=== PATIENT | female | born 1935 | race Caucasian/White ===

== ENCOUNTER 2016-08-26 10:02 | Emergency (ER) | payer MEDICARE, BC ==
--- NOTE | 2016-08-26 10:24 | Emergency Department Record ---
History of Present Illness - General Chief Complaint: Cough Stated Complaint: COUGHING Time Seen by Provider: 08/26/16 10:12 Source: Patient Mode of Arrival: Ambulatory Limitations: No limitations - History of Present Illness Initial Comments: The patient is here due to a one day hx of a dry cough. The cough now feels like it is traveling into her chest. She denies any sputum production, CP, SOB, or fevers. She states she gets bronchitis like this every year. MD Complaint: Cough Onset/Timin -: Days(s) Consistency: Intermittent - Related Data Home Medications Medication Instructions Recorded Confirmed Last Taken Dicyclomine HCl 10 mg PO DAILY PRN 12/02/13 08/26/16 08/29/15 Lidocaine Patch [Lidoderm] 1 each TOP DAILY 12/02/13 08/26/16 08/29/15 Pregabalin [Lyrica] 150 mg PO DAILY 12/02/13 08/26/16 08/29/15 Simvastatin [Simvastatin] 20 mg PO DAILY 12/02/13 08/26/16 08/29/15 Omeprazole [Prilosec] 20 mg PO DAILY 08/30/15 08/26/16 08/29/15 Trazodone HCl [Desyrel] 50 mg PO QHS 08/30/15 08/26/16 08/29/15 Previous Rx's Medication Instructions Recorded Azithromycin [Zithromax] 250 mg PO ASDIR #6 tab 08/26/16 Benzonatate [Tessalon] 1 cap PO Q8H PRN #15 cap 08/26/16 Allergies Allergy/AdvReac Type Severity Reaction Status Date / Time No Known Drug Allergies Allergy Unverified 09/26/15 10:41 Travel Screening - Travel/Exposure Within Last 30 Days Have you traveled within the last 30 days?: No Review of Systems Constitutional: Denies: Chills, Fever Eyes: Denies: Eye discharge ENT: Denies: Congestion Respiratory: Reports: Cough. Denies: Dyspnea, Hemoptysis Cardiovascular: Denies: Chest pain Past Medical History - SOCIAL HISTORY Smoking Status: Former smoker Alcohol Use: None Drug Use: None - RESPIRATORY Hx Respiratory Disorders: No - CARDIOVASCULAR Hx Cardio Disorders: No - NEURO Hx Neuro Disorders: No - GI Hx GI Disorders: Yes Hx Irritable Bowel: Yes - Hx Genitourinary Disorders: No - ENDOCRINE Hx Endocrine Disorders: No - MUSCULOSKELETAL Hx Musculoskeletal Disorders: Yes Hx Fibromyalgia: Yes - PSYCH Hx Psych Problems: No - HEMATOLOGY/ONCOLOGY Hx Hematology/Oncology Disorders: No Family Medical History Any Significant Family History?: Yes Hx Cancer: Brother/Sister Hx Diabetes: Brother/Sister Physical Exam - General General Appearance: Alert, Oriented x3, Cooperative, No acute distress - Head Head exam: Atraumatic, Normocephalic, Normal inspection - Eye Eye exam: Normal appearance, PERRL - ENT Throat exam: Normal inspection. negative: Tonsillar erythema, Tonsillar exudate - Neck Neck exam: Normal inspection, Full ROM. negative: Lymphadenopathy, Tenderness - Respiratory Respiratory exam: Normal lung sounds bilaterally. negative: Decreased breath sounds, Respiratory distress, Stridor, Wheezes - Cardiovascular Cardiovascular Exam: Regular rate, Normal rhythm, Normal heart sounds - GI/Abdominal GI/Abdominal exam: Soft, Normal bowel sounds. negative: Tenderness - Extremities Extremities exam: Normal inspection, Full ROM, Normal capillary refill. negative: Tenderness - Neurological Neurological exam: Normal gait. negative: Abnormal gait Course Vital Signs 08/26/16 10:07 Temperature 97.9 F Pulse Rate 74 Respiratory 18 Rate Blood Pressure 138/77 Pulse Ox 98 - Reevaluation(s) Reevaluation #1: The patient is doing well. I did explain to her that the xray is WNL. We will discharge her on an oral Abx and cough medicine. 08/26/16 11:03 Medical Decision Making - Data Complexity MDM Data: X-Ray Ordered and/or Reviewed - Radiology Data Radiology results: Report reviewed (CXR: Neg.) Disposition Disposition: Discharge Clinical Impression: Acute upper respiratory infection Disposition: Home, Self-Care Condition: (1) Good Instructions: Cold Symptoms (ED) Additional Instructions: Please take the Zpak and Tessalon as directed. Please see your PCP if not better by Tuesday. Return to the ER for any increased cough, fever, trouble breathing or pain. Prescriptions: Benzonatate [Tessalon] 1 cap PO Q8H PRN #15 cap PRN Reason: Cough Azithromycin [Zithromax] 250 mg PO ASDIR #6 tab Forms: Patient Portal Access Time of Disposition: 11:05
--- NOTE | 2016-08-30 17:54 | RADIOLOGY REPORT ---
DATE: 08/26/2016. EXAM: TWO VIEWS OF THE CHEST. HISTORY: The patient has a chronic cough and chest pain. TECHNIQUE: Two views of the chest were provided along with a comparison study dated 08/30/2015. FINDINGS: The cardiomediastinal silhouette is within normal limits for size and contour. Mild tortuosity of the thoracic aorta is noted. There is mild to moderate dextroconvex scoliosis of the thoracolumbar spine which appears similar to the prior examination. The tiki appear unremarkable. Mild chronic obstructive pulmonary disease changes are again identified. There is no radiographic evidence of a focal infiltrate or pleural effusion. No pneumothorax is noted. IMPRESSION: CHRONIC OBSTRUCTIVE PULMONARY DISEASE CHANGES ARE IDENTIFIED WITHOUT RADIOGRAPHIC EVIDENCE OF AN ACUTE INTRATHORACIC PROCESS. JOB NUMBER: [id number] [facility]
== END 2016-08-26 11:15 | disposition home or self-care (01) ==
LOC: ER 10:02
DX: J06.9 Acute upper respiratory infection, unspecified (principal); R05 Cough; Z87.891 Personal history of nicotine dependence
CPT/HCPCS: 71020; 99283

== ENCOUNTER 2016-08-29 11:54 | Emergency (ER) | payer MEDICARE, BC ==
--- NOTE | 2016-08-29 12:26 | Emergency Department Record ---
History of Present Illness - General Chief Complaint: Cough Stated Complaint: COUGH/CHEST CONGESTION Time Seen by Provider: 08/29/16 12:20 Source: Patient Mode of Arrival: Ambulatory Limitations: No limitations - History of Present Illness Initial Comments: 81 yo female presents to ED with a CC of continued cough and wheezing symptoms for the past 4 days. Patient was seen at that times, started on Zithromax and tessalon for her cough symptoms which have not significantly improved. Patient deniers fevers, chills, nausea, vomiting or other associated symptoms. MD Complaint: Cough Onset/Timin -: Days(s) Severity: Moderate Consistency: Constant Improves With: Nothing Worsens With: Deep breaths Associated Symptoms: Denies other symptoms Treatments Prior to Arrival: Antibiotics - Related Data Home Medications Medication Instructions Recorded Confirmed Last Taken Dicyclomine HCl 10 mg PO DAILY PRN 12/02/13 08/29/16 08/29/16 Lidocaine Patch [Lidoderm] 1 each TOP DAILY 12/02/13 08/29/16 08/29/16 Pregabalin [Lyrica] 150 mg PO DAILY 12/02/13 08/29/16 08/29/16 Simvastatin [Simvastatin] 20 mg PO DAILY 12/02/13 08/29/16 08/29/16 Omeprazole [Prilosec] 20 mg PO DAILY 08/30/15 08/29/16 08/29/16 Trazodone HCl [Desyrel] 50 mg PO QHS 08/30/15 08/29/16 08/29/16 Previous Rx's Medication Instructions Recorded Azithromycin [Zithromax] 250 mg PO ASDIR #6 tab 08/26/16 Benzonatate [Tessalon] 1 cap PO Q8H PRN #15 cap 08/26/16 Albuterol Sulfate [Proair Hfa] 1 - 2 puff IH .EVERY 4-6 HOURS PRN 08/29/16 #1 inhaler Prednisone [Prednisone 20Mg] 20 mg PO TID #15 tab 08/29/16 Allergies Allergy/AdvReac Type Severity Reaction Status Date / Time No Known Drug Allergies Allergy Verified 08/29/16 12:03 Travel Screening - Travel/Exposure Within Last 30 Days Have you traveled within the last 30 days?: No - Travel/Exposure Within Last Year Have you traveled outside the [place] in the last year?: No - Additonal Travel Details Have you been exposed to anyone with a communicable illness?: No - Travel Symptoms Symptom Screening: None Review of Systems Constitutional: Denies: Chills, Fever, Malaise, Night sweats Eyes: Denies: Eye discharge, Eye pain ENT: Denies: Congestion, Ear pain, Epistaxis Respiratory: Reports: Cough, Wheezes. Denies: Dyspnea, Hemoptysis Cardiovascular: Denies: Chest pain, Dyspnea on exertion, Palpitations Endocrine: Denies: Fatigue, Heat or cold intolerance Gastrointestinal: Denies: Abdominal pain, Nausea, Vomiting Genitourinary: Denies: Dysuria, Frequency Musculoskeletal: Denies: Arthralgia, Back pain, Gout Skin: Denies: Bruising, Change in color Neurological: Denies: Abnormal gait, Confusion, Headache, Seizure Psychiatric: Denies: Anxiety Hematological/Lymphatic: Denies: Anemia Past Medical History - SOCIAL HISTORY Smoking Status: Former smoker Alcohol Use: Occassional Drug Use: None - RESPIRATORY Hx Respiratory Disorders: No - CARDIOVASCULAR Hx Cardio Disorders: No - NEURO Hx Neuro Disorders: No - GI Hx GI Disorders: Yes Hx Irritable Bowel: Yes - Hx Genitourinary Disorders: No - ENDOCRINE Hx Endocrine Disorders: No - MUSCULOSKELETAL Hx Musculoskeletal Disorders: Yes Hx Fibromyalgia: Yes - PSYCH Hx Psych Problems: No - HEMATOLOGY/ONCOLOGY Hx Hematology/Oncology Disorders: No Family Medical History Any Significant Family History?: Yes Hx Cancer: Brother/Sister Hx Diabetes: Brother/Sister Physical Exam - General General Appearance: Alert, Oriented x3, Cooperative, No acute distress Limitations: No limitations - Head Head exam: Atraumatic, Normocephalic, Normal inspection Head exam detail: negative: Abrasion, Contusion, Kinsey's sign, General tenderness, Hematoma, Laceration - Eye Eye exam: Normal appearance. negative: Conjunctival injection, Periorbital swelling, Periorbital tenderness, Scleral icterus - ENT Ear exam: negative: Auricular hematoma, Auricular trauma Nasal Exam: negative: Active bleeding, Discharge, Dried blood, Foreign body Mouth exam: negative: Drooling, Laceration, Muffled voice, Tongue elevation - Neck Neck exam: Normal inspection. negative: Meningismus, Tenderness - Respiratory Respiratory exam: Normal lung sounds bilaterally. negative: Respiratory distress, Rhonchi, Stridor, Wheezes - Cardiovascular Cardiovascular Exam: Regular rate, Normal rhythm, Normal heart sounds - GI/Abdominal GI/Abdominal exam: Soft. negative: Rebound, Rigid, Tenderness - Rectal Rectal exam: Deferred - exam: Deferred - Extremities Extremities exam: Normal inspection. negative: Calf tenderness, Pedal edema, Tenderness - Back Back exam: Reports: Normal inspection. Denies: CVA tenderness (R), CVA tenderness (L) - Neurological Neurological exam: Alert, Normal gait, Oriented X3 - Psychiatric Psychiatric exam: Normal affect, Normal mood - Skin Skin exam: Normal color. negative: Abrasion Type of lesion: negative: abrasion Course Vital Signs 08/29/16 12:04 Temperature 97.6 F Pulse Rate 81 Respiratory 18 Rate Blood Pressure 123/76 Pulse Ox 97 - Reevaluation(s) Reevaluation #1: 08/29/16 12:24 Patient's lung examination is normal without crackles or wheezing presently, CXR reviewed from 4 days ago and is negative for an acute process. Will prescribe prednisone for inflammation of he lungs and albuterol for continued treatment of bronchitis symptoms. Without fever or other systemic signs of infection, additional antibiotics do not appear indicated at this time. Patient agrees with plan as discussed. Disposition Disposition: Discharge Clinical Impression: Acute bronchitis Qualifiers: Bronchitis organism: unspecified organism Qualified Code(s): J20.9 - Acute bronchitis, unspecified Disposition: Home, Self-Care Condition: (2) Stable Instructions: Acute Bronchitis (ED) Additional Instructions: Return to ED if your symptoms worsen or if you have any concerns. Albuterol and Prednisone as directed. Follow-up with your family doctor in 3-5 days as directed. Prescriptions: Prednisone [Prednisone 20Mg] 20 mg PO TID #15 tab Albuterol Sulfate [Proair Hfa] 1 - 2 puff IH .EVERY 4-6 HOURS PRN #1 inhaler PRN Reason: Difficulty In Breathing Forms: Patient Portal Access Time of Disposition: 12:28
== END 2016-08-29 12:34 | disposition home or self-care (01) ==
LOC: ER 11:54
DX: J20.9 Acute bronchitis, unspecified (principal); Z87.891 Personal history of nicotine dependence
CPT/HCPCS: 99282

== ENCOUNTER 2019-05-30 05:12 | Day surgery (SDC) | payer MEDICARE, BC ==
[2019-05-30] MEDS ORDERED: FENTANYL PF 100MCG/2ML VIAL IV ONE (05:13)
[2019-05-30] MEDS ORDERED: MIDAZOLAM HCL 2MG/2ML VIAL IV ONE (05:13)
[2019-05-30] MEDS ORDERED: LIDOCAINE 2% MDV (20MG/ML) 20ML VIAL IV ONE (05:13)
[2019-05-30] MEDS ORDERED: PROPOFOL 10 MG/ML VIAL IV ONE (05:13)
[2019-05-30] MEDS ORDERED: RINGERS SOLUTION,LACTATED 1,000 ML IV ONE (06:00)
[2019-05-30] MEDS ORDERED: BUPIVACAINE 0.5% W/EPI MPF 30 ML VIAL SQ ONE (07:28)
[2019-05-30] MEDS ORDERED: DEXAMETHASONE PRESERVATIVE FREE 10MG/ML VIAL SQ ONE (07:28)
[2019-05-30] MEDS ORDERED: BUPIVACAINE 0.5% (5MG/ML) PF 30ML VIAL SQ ONE (07:28)
[2019-05-30] MEDS ORDERED: LIDOCAINE 1% W/EPI 1:200,000 MPF 30ML SQ ONE (07:28)
--- NOTE | 2019-05-30 08:59 | Operative Note - [facility] ---
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 OPERATION: FLUOROSCOPICALLY GUIDED INFILTRATION BLOCK LEFT CERVICAL FACETS C3-C4, C4-C5, C5-C6 AND C6-C7. SURGEON: Leonid Calixto D.O. ANESTHESIA PROVIDER: KAITLIN Burleson CRNA INDICATION: This patient presents with primary neck pain on the left. Examination of the cervical spine range of motion does cause pain to the neck with extension. Diagnostics show diffuse and multiple level spondylitic change. PROCEDURE: Intravenous line, vital sign monitoring, IV sedation, prepped and draped, sterile technique. With the patient prone, a sterile prep and maintaining the sterile area the facets at C3-C4, C4-C5, C5-C6, and C6-C7 were marked on the left, skin infiltrated, a 25-gauge 3-1/2 inch needle into the facet, 1 ml of 0.5% Marcaine and Dexamethasone injected. This was repeated at each of the sites on the left. The area was cleaned, topical antibiotic, and sterile dressing applied. Will monitor and evaluate. JOB NUMBER: [id number] [facility]TDD
== END 2019-05-30 08:08 | disposition home or self-care (01) ==
LOC: SUR 05:12
PROVIDERS: ATTEND Pain Medicine Interventional Pain Medicine
DX: M47.812 Spondylosis without myelopathy or radiculopathy, cervical region (principal); E78.00 Pure hypercholesterolemia, unspecified; K21.9 Gastro-esophageal reflux disease without esophagitis
CPT/HCPCS: J7120

== ENCOUNTER → 2019-08-08 | Day surgery (SDC) | payer BC, MEDICARE ==
[~2019-08-08] MED LIST: BUPIVACAINE 0.5% (5MG/ML) PF 30ML VIAL SQ ONE; BUPIVACAINE 0.5% W/EPI MPF 30 ML VIAL SQ ONE; DEXAMETHASONE PRESERVATIVE FREE 10MG/ML VIAL SQ ONE; FENTANYL PF 100MCG/2ML VIAL IV ONE; LIDOCAINE 1% W/EPI 1:200,000 MPF 30ML SQ ONE; LIDOCAINE 2% MDV (20MG/ML) 20ML VIAL IV ONE; MIDAZOLAM HCL 2MG/2ML VIAL IV ONE; PROPOFOL 10 MG/ML VIAL IV ONE; RINGERS SOLUTION,LACTATED 1,000 ML IV ONE
--- NOTE | 2019-08-08 14:08 | Operative Note - [facility] ---
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 OPERATION: FLUOROSCOPICALLY GUIDED INFILTRATION BLOCK LEFT CERVICAL FACETS C3-C4, C4-C5, C5-C6, AND C6-C7. SURGEON: Leonid Calixto D.O. ANESTHESIA: Local sedation. ANESTHESIA PROVIDER: Graeme Shrestha CRNA INDICATION: This patient presents with pain which is left sided neck and shoulder. Diagnostics show significant end plate spurring and osteophytic formation diffusely throughout the cervical spine. PROCEDURE: Intravenous line, vital sign monitoring, IV sedation, prepped and draped, sterile technique. Under imaging the cervical facets in the area of pain on the left are identified and marked C3-C4, C4-C5, C5-C6, and C6-C7. Each one of these points on the skin are infiltrated. A 25-gauge 3-1/2 inch needle into the facet, 1 ml of 0.5% Marcaine and Dexamethasone was injected at each of the sites to the left. The areas were cleaned, topical antibiotic, and sterile dressing applied. Will monitor and evaluate. JOB NUMBER: [id number] [facility]TDD
== END | disposition home or self-care (01) ==
LOC: SUR 05:50
PROVIDERS: ATTEND Pain Medicine Interventional Pain Medicine
DX: M47.812 Spondylosis without myelopathy or radiculopathy, cervical region (principal)
CPT/HCPCS: 64490; 64491; 64492; 01992; J1100; J3010; J7120

== ENCOUNTER → 2019-09-12 | Day surgery (SDC) | payer MEDICARE ==
[~2019-09-12] MED LIST changes: +BUPIVACAINE 0.25% PF (2.5MG/ML) 10ML VIAL IM ONE; -BUPIVACAINE 0.5% (5MG/ML) PF 30ML VIAL SQ ONE; +DEXAMETHASONE PRESERVATIVE FREE 10MG/ML VIAL IM ONE; -DEXAMETHASONE PRESERVATIVE FREE 10MG/ML VIAL SQ ONE
--- NOTE | 2019-09-12 08:06 | Operative Note - [facility] ---
DATE OF SURGERY: 09/12/2019 PREOPERATIVE DIAGNOSIS: LEFT CERVICAL RADICULOPATHY, ICD-10 CODE M54.12. OPERATION: FLUOROSCOPICALLY GUIDED LEFT QUADRANT CERVICAL EPIDURAL INJECTION C6-C7. SURGEON: Leonid Calixto D.O. INDICATION: This patient presents with pain which is left sided neck and shoulder. Diagnostics showed diffuse spondylitic change with disk contraction at C4-C5, C5-C6, and C6-C7. Current pain level 0-10 is an 8. A previous cervical facet to the left failed to appreciably control pain. She is here for an epidural injection to evaluate the treatment option. PROCEDURE: Intravenous line, vital sign monitoring, IV sedation, prepped and draped, sterile technique. Under imaging the cervical epidural interspace left quadrant C6-C7 marked, infiltrated with a 20-gauge 3-1/2 inch Tuohy needle with loss resistance, atraumatic. No blood. No CSF. Diagnostic epidurogram showing appropriate flow characteristics. 5 ml of 0.125% Marcaine with Dexamethasone injected. The needle was removed, neck cleaned, topical antibiotic, and sterile dressing applied. Will monitor and evaluate. JOB NUMBER: [id number] [facility]TDD
== END | disposition home or self-care (01) ==
LOC: SUR 05:33
PROVIDERS: ATTEND Pain Medicine Interventional Pain Medicine
DX: M54.12 Radiculopathy, cervical region (principal)
CPT/HCPCS: J7120